=== PATIENT | male | born 1965 | race Caucasian/White ===

== ENCOUNTER → 2021-06-02 | Outpatient (CLI) | payer MEDICAID ==
--- NOTE | 2021-06-03 08:02 | REP ---
INDICATION: CYST AND MUCOCELE OF NOSE. Repeat dictation. Preliminary report is provided at the time of the exam by morris SOSA. COMPARISON: Comparison chest x-ray May 17, 2021. TECHNIQUE: Helical scanning is acquired and 2 mm axial images re-formatted. Coronal MPR images are generated and reviewed. FINDINGS: There is mild diffuse peribronchial thickening visible on the frontal view. The patient is rotated slightly to the right for this projection. No focal infiltrate is seen on the frontal view. Pleural angles are sharp. Heart is not enlarged. Situs is normal. The lateral radiograph demonstrates a air density overlying the lower mediastinum. There is air in the upper esophagus. The radiolucency over the lower mediastinum is of uncertain significance. Follow-up suggested. IMPRESSION: Diffuse peribronchial thickening. No definite infiltrate. Unusual radiolucency over the lower mediastinum on the lateral radiograph. Uncertain significance. Repeat chest x-ray suggested. <Electronically signed by Juan Posadas > 06/03/21 [id number]
== END ==
LOC: M RAD 16:40
PROVIDERS: ATTEND Otolaryngology
DX: J34.1 Cyst and mucocele of nose and nasal sinus (principal); J34.89 Other specified disorders of nose and nasal sinuses

== ENCOUNTER → 2021-09-30 | Outpatient (CLI) | payer MEDICAID | LOC: M PLAIMG 09:18 | PROVIDERS: ATTEND Otolaryngology | DX: J34.1 Cyst and mucocele of nose and nasal sinus (principal) ==

== ENCOUNTER 2021-11-21 19:30 | Emergency (ER) | payer MEDICAID ==
[2021-11-21 23:31] VITALS: BP 130/87
== END 2021-11-21 23:45 | disposition home or self-care (01) ==
LOC: M ED 19:30
DX: F43.0 Acute stress reaction (principal); R45.6 Violent behavior; F79 Unspecified intellectual disabilities; Z79.899 Other long term (current) drug therapy